=== PATIENT | female | born 1955 | race Caucasian/White ===

== ENCOUNTER 2020-02-16 09:15 | Outpatient (CLI) | payer BC, SELFPAY ==
--- NOTE | ~2020-02-16 | MM_ITS ---
EXAMINATION: MM screening christopher BI w ginny HISTORY: Screening mammogram TECHNIQUE: Craniocaudal and mediolateral oblique 3-D tomosynthesis images were obtained and synthetic 2-D images were generated. CAD analysis was submitted and interpreted. COMPARISON: No prior mammogram is available for comparison at this institution. BREAST PARENCHYMAL COMPOSITION: There are scattered areas of fibroglandular density. FINDINGS: There is no evidence of suspicious mass, calcification, or architectural distortion to sugg est malignancy in either breast. There has been no suspicious interval change. IMPRESSION: 1. No mammographic evidence of malignancy. 2. Recommend routine screening mammography in one year. BI-RADS Category 1: Negative Reviewed, dictated and finalized at location A.
== END 2020-02-16 09:16 | disposition home or self-care (01) ==
LOC: ANHIMG 09:17
PROVIDERS: PCP Family Medicine; Visit Provider Nurse Practitioner
DX: Z12.31 Encounter for screening mammogram for malignant neoplasm of breast (principal)
CPT/HCPCS: 77063; 77067

== ENCOUNTER 2020-03-31 07:53 | Outpatient (CLI) | payer BC, SELFPAY ==
--- NOTE | ~2020-03-31 | DEXA_ITS ---
Bone Density Report Name: Adam Wilson Age: 65 Sex: Female Ethnicity: White Date of : 1955 Indication: postmenopausal; height loss; Referring Provider: Margarita Richardson Study: Bone densitometry was performed. Exam Date: March 31, 2020 Accession number: [id number] Bone Density: Region BMD T-score Z-score Classification AP Spine (L1-L4) 1.058 0.1 1.7 Normal Femoral Neck (Left) 0.883 0.3 1.7 Normal Total Hip (Left) 1.010 0.6 1.7 Normal Total Hip Bilateral Avg 1.029 0.8 1.9 Normal Femoral Neck (Right) 0.921 0.6 2.1 Normal Total Hip (Right) 1.047 0.9 2.0 Normal World Health Organization criteria for BMD impression classify patients as: Normal (T-score at or above -1.0), Osteopenia (T-score between -1.0 and -2.5), or Osteoporosis (T-score at or below -2.5). 10-year Fracture Risk: FRAX not reported because: All T-scores for Spine Total, Hip Total, Femoral Neck at or above -1.0 Clinical Information Provided by Patient: Patient maximum height was 64 Menopause Age: 59 Drinks caffeinated beverages Onset of menses at age 16 Number of children 2 Impression: The patient has normal bone mass. Discussion: BONE DENSITY IS ABOVE THE MINIMUM DESIRABLE LEVEL AT ALL SKELETAL SITES TESTED. This patient?s bone mineral density is above the minimum desirable level (T-score -1.0 or better) at all sites measured. The patient should follow a healthful lifestyle (good nutrition with adequate calcium and vitamin D, and appropriate weight-bearing exercise). Follow-Up: Consider repeating this study in 5 years or sooner if there is some new clinical indication. Reported by: ASHLEY on 03/31/2020 8:15:00 AM. Reviewed, dictated and finalized at location AAngelo WEBSTER
== END 2020-03-31 07:54 | disposition home or self-care (01) ==
LOC: ANHIMG 07:54
PROVIDERS: PCP Family Medicine; Visit Provider Nurse Practitioner
DX: Z78.0 Asymptomatic menopausal state (principal)
CPT/HCPCS: 77080

== ENCOUNTER 2020-07-02 07:23 | Outpatient (CLI) | payer BC, SELFPAY | END 2020-07-02 07:24 | disposition home or self-care (01) | LOC: ANHBWCAUD 07:24 | PROVIDERS: PCP Family Medicine; Visit Provider Otolaryngology | DX: H93.13 Tinnitus, bilateral (principal); H93.8X9 Other specified disorders of ear, unspecified ear | CPT/HCPCS: 92557; 92567 ==

== ENCOUNTER 2021-02-21 07:25 | Outpatient (CLI) | payer BC, SELFPAY ==
--- NOTE | ~2021-02-21 | MM_ITS ---
EXAMINATION: MM screening christopher BI w ginny HISTORY: Screening mammogram TECHNIQUE: Craniocaudal and mediolateral oblique 3-D tomosynthesis images were obtained and synthetic 2-D images were generated. CAD analysis was submitted and interpreted. COMPARISON: 02/16/2020, 02/12/2019, 02/06/2018 bilateral digital screening mammogram examinations BREAST PARENCHYMAL COMPOSITION: There are scattered areas of fibroglandular density. FINDINGS: There is no evidence of suspicious mass, calcification, or architectural distortion to sugg est malignancy in either breast. There has been no suspicious interval change. IMPRESSION: 1. No mammographic evidence of malignancy. 2. Recommend routine screening mammography in one year. BI-RADS Category 1: Negative Reviewed, dictated and finalized at location A.
== END 2021-02-21 07:26 | disposition home or self-care (01) ==
PROVIDERS: PCP Family Medicine; Visit Provider Nurse Practitioner Family
DX: Z12.31 Encounter for screening mammogram for malignant neoplasm of breast (principal)
CPT/HCPCS: 77063; 77067

== ENCOUNTER 2021-11-19 16:17 | Emergency (ER) | payer BC, SELFPAY ==
[2021-11-19 16:22] VITALS: BP 160/73; PULSE 95; RESP 16; TEMP 37.4; O2SAT 98
--- NOTE | 2021-11-19 16:42 | ED.EAR ---
HPI - Ear Problem General Chief complaint: Ear Stated complaint: Bug flew in L ear - check Source: patient Mode of arrival: ambulatory Limitations: no limitations History of Present Illness HPI Narrative: Patient presents for evaluation after getting an insect stuck in her left ear. She indicates she was in her pool just prior to arrival when she felt an insect in her left ear. She and her son put some vegetable oil in her ear canal. The later placed hydrogen peroxide in the ear. She was unsure whether the insect came out so she came in for further evaluation. She does not feel like the insect is in her ear any longer. Denies any tinnitus, hearing loss, otalgia. No additional complaints or concerns. Related Data Allergies Allergy/AdvReac Type Severity Reaction Status Date / Time Penicillins Allergy Unknown Unknown Verified 09/05/21 14:57 Sulfa (Sulfonamide Allergy Unknown Swelling Verified 09/05/21 14:57 Antibiotics) Review of Systems Review of Systems: CONSTITUTIONAL: Denies fever, chills, or sweats. EYES: Denies visual changes, redness, or discharge. ENT: Reports sensation of insect in her ear earlier, now resolved. Denies rhinorrhea, congestion, sore throat, or otalgia. CARDIOVASCULAR: Denies chest pain, palpitations, or edema. RESPIRATORY: Denies cough or dyspnea. GASTROINTESTINAL: Denies abdominal pain, nausea, vomiting, or diarrhea. GENITOURINARY: Denies dysuria or hematuria. SKIN: Denies rash or itching. MUSCULOSKELETAL: Denies back pain, joint pain, or myalgia. NEUROLOGIC: Denies headache, numbness, dizziness, or weakness. PSYCHIATRIC: Denies anxiety or depression. [facility] Past Medical History Medical History (Updated 11/19/21 @ 16:45 by LESLY Ellison, BC) Allergies Depressive disorder, not elsewhere classified Former smoker 20 pack-year smoking hx, quit in 1995 Osteoarthritis of knee, unspecified Other and unspecified hyperlipidemia Palpitations Vitamin D deficiency Surgical History Surgical History No pertinent past surgical history Family History Family History Sibling Family history of migraine headaches Mother Family history of pancreatic cancer Family history of malignant neoplasm of breast in first degree relative Father Asthma Cancer Depression Grandparent Carcinoma of colon Social History Social History Social History: , 2 children. Only one son living now. Tj Wilson will make medical decision for her if needed. Years smoked: 20 Smoking status: Former smoker Smoking end date: 04/30/95 Alcohol intake: current Alcohol use details: occasionally Substance use: never Substance use type: does not use Exam Narrative: GENERAL: Well-appearing, well-nourished, and in no acute distress. HEAD: Normocephalic, atraumatic. EYES: PERRLA and EOMI. ENT: Nares clear, no rhinorrhea or epistaxis. Mucous membranes moist. Oropharynx without tonsillar hypertrophy exudate or other lesions. Bilateral TMs pearly hines nonbulging NECK: Supple. No adenopathy or masses. No carotid bruits or JVD CHEST: Clear to auscultation. No respiratory distress. No wheezes rales or rhonchi HEART: Regular rate and rhythm. No murmur heard. Normal peripheral pulses. ABDOMEN: Soft, nontender, nondistended, normal active bowel sounds. EXTREMITIES: Normal range of motion. No edema. SKIN: Warm, dry, no rash. NEURO: No focal deficits. Alert and oriented x3. PSYCH: Normal mood and affect. Course Course Emergency Course: This is a 66-year-old female with a reported an insect in her ear prior to arrival. She irrigated it prior to coming in today. On my exam today, there is no evidence of insect or other foreign body in her ear at present time. Tympanic membrane is intact and there is no evide
== END 2021-11-19 16:45 | disposition home or self-care (01) ==
PROVIDERS: Emergency Provider Nurse Practitioner; PCP Family Medicine
DX: T16.2XXA Foreign body in left ear, initial encounter (principal); X58.XXXA Exposure to other specified factors, initial encounter; Z87.891 Personal history of nicotine dependence; M17.10 Unilateral primary osteoarthritis, unspecified knee; F32.A Depression, unspecified
CPT/HCPCS: 99211; G0463

== ENCOUNTER 2022-04-05 11:59 | Outpatient (CLI) | payer MEDICARE, SELFPAY ==
--- NOTE | ~2022-04-05 | MM_ITS ---
EXAMINATION: MM screening christopher BI w ginny HISTORY: Screening mammogram, family history of breast cancer in her mother. TECHNIQUE: Craniocaudal and mediolateral oblique 3-D tomosynthesis images were obtained and synthetic 2-D images were generated. CAD analysis was submitted and interpreted. COMPARISON: 02/21/2021, 02/16/2020, 02/12/2019 BREAST PARENCHYMAL COMPOSITION: There are scattered areas of fibroglandular density. FINDINGS: No suspicious mass, calcification, or architectural distortion are identified in either torin ast to suggest malignancy. There has been no suspicious interval change. IMPRESSION: 1. No mammographic evidence of malignancy. 2. Recommend routine screening mammography in one year. BI-RADS Category 2: Benign finding(s). Reviewed, dictated and finalized at location A. ING MACHINE SETUP OPERATOR
== END 2022-04-05 12:00 | disposition home or self-care (01) ==
PROVIDERS: PCP Family Medicine; Visit Provider Family Medicine
DX: Z12.31 Encounter for screening mammogram for malignant neoplasm of breast (principal)
CPT/HCPCS: 77063; 77067

== ENCOUNTER → 2022-05-09 09:24 | Outpatient (CLI) | payer MEDICARE, SELFPAY ==
--- NOTE | ~2022-05-09 | DEXA_ITS ---
Bone Density Report Name: NATHANAEL TAMEZ Age: 67 Sex: Female Ethnicity: White Date of : 1955 Indication: postmenopausal; screening for osteoporosis; height loss; Referring Provider: Margarita Richardson Study: Bone densitometry was performed. Exam Date: May 09, 2022 Accession number: [id number] Bone Density: Region BMD T-score Z-score Classification AP Spine (L1-L4) 1.114 0.6 2.4 Normal Femoral Neck (Left) 0.914 0.6 2.1 Normal Total Hip (Left) 1.011 0.6 1.8 Normal Femoral Neck (Right) 0.894 0.4 1.9 Normal Total Hip (Right) 1.038 0.8 2.0 Normal Total Hip Mean 1.025 0.7 1.9 Normal World Health Organization criteria for BMD impression classify patients as: Normal (T-score at or above -1.0), Osteopenia (T-score between -1.0 and -2.5), or Osteoporosis (T-score at or below -2.5). 10-year Fracture Risk: FRAX not reported because: All T-scores for Spine Total, Hip Total, Femoral Neck at or above -1.0 Clinical Information Provided by Patient: Has used the following medications: Vitamin D, Calcium, MTV Patient maximum height was 64 Menopause Age: 44 No regular weight bearing exercise Drinks caffeinated beverages Onset of menses at age 16 Number of children 2 Impression: The patient has normal bone mass. Discussion: BONE DENSITY IS ABOVE THE MINIMUM DESIRABLE LEVEL AT ALL SKELETAL SITES TESTED. This patient?s bone mineral density is above the minimum desirable level (T-score -1.0 or better) at all sites measured. The patient should follow a healthful lifestyle (good nutrition with adequate calcium and vitamin D, and appropriate weight-bearing exercise). Follow-Up: Consider repeating this study in 5 years or sooner if there is some new clinical indication. Reported by: ASHLEY on 05/09/2022 9:46:00 AM. Reviewed, dictated and finalized at location AAngelo WEBSTER
== END ==
PROVIDERS: PCP Family Medicine; Visit Provider Nurse Practitioner
DX: Z78.0 Asymptomatic menopausal state (principal)
CPT/HCPCS: 77080

== ENCOUNTER 2022-05-16 10:03 | Outpatient (CLI) | payer MEDICARE, SELFPAY ==
--- NOTE | ~2022-05-16 | CT_ITS ---
EXAMINATION:CT lung screening DATE: 05/16/2022 10:27 INDICATION: Tobacco use. Smoker who quit 2 years ago with 20 pack year history. TECHNIQUE: Computed tomography (CT) of the chest was performed without intravenous contrast. Automate d exposure control and iterative reconstruction technique were employed. The dose-length product (DLP ) was 80.63 mGy-cm. COMPARISON: None. FINDINGS: There is mild scarring at the lung apices. There is a 5 mm nodule at minor fissure. There i s a 3 mm nodule at left major fissure. There is mild atelectasis bilaterally. No pleural effusion. Th e heart size is normal. There are coronary artery calcifications. No pericardial effusion. There are cysts in the liver measuring up to 17 mm. There is severe cervical and thoracic spondylosis. IMPRESSION: 1. Lung-RADS category 2: Benign appearance or behavior. Continue annual screening with noncontrast lo w-dose chest CT in 12 months. Reviewed, dictated and finalized at location A. [employer] IMPRESSION: 1. Lung-RADS category 2: Benign appearance or behavior. Continue annual screeni ng with noncontrast low-dose chest CT in 12 months.
== END 2022-05-16 10:04 | disposition home or self-care (01) ==
PROVIDERS: PCP Family Medicine; Visit Provider Nurse Practitioner
DX: Z12.2 Encounter for screening for malignant neoplasm of respiratory organs (principal); Z87.891 Personal history of nicotine dependence
CPT/HCPCS: 71271

== ENCOUNTER 2022-10-04 15:29 | Outpatient (CLI) | payer MEDICARE, SELFPAY ==
[2022-10-04 21:27] LABS: Alanine Aminotransferase 38 U/L (6-35); Albumin Level 4.4 g/dL (3.5-5.1); Alkaline Phosphatase 58 U/L (38-126); Anion Gap 7 mmol/L (8-16); Aspartate Amino Transferase 41 U/L (14-36); Bilirubin,Total 0.7 mg/dL (0.2-1.3); Blood Urea Nitrogen 17 mg/dL (7-17); Calcium 9.4 mg/dL (8.4-10.2); Carbon Dioxide 31 mmol/L (22-30); Chloride 102 mmol/L (98-107); Estimated Glomerular Filt Rate > 60; Glucose 92 mg/dL (65-110); Potassium 4.2 mmol/L (3.4-5.0); Sodium 140 mmol/L (137-145)
== END 2022-10-04 15:30 | disposition home or self-care (01) ==
LOC: ANHGOSHLAB 15:30
PROVIDERS: PCP Family Medicine; Visit Provider Family Medicine
DX: E78.5 Hyperlipidemia, unspecified (principal); I10 Essential (primary) hypertension
CPT/HCPCS: 36415; 80053

== ENCOUNTER 2022-11-02 09:47 | Outpatient (CLI) | payer MEDICARE, SELFPAY ==
--- NOTE | ~2022-11-02 | NM_ITS ---
EXAMINATION: NM josefina stress w perfusion DATE: 11/02/2022 11:29 INDICATION: Left bundle branch block TECHNIQUE: Rest images were obtained following intravenous administration of 9.2 mCi Tc99m tetrofosmi n (Myoview). The patient was infused intravenously with Lexiscan (Regadenoson). Then, 30.3 mCi Tc99m tetrofosmin (Myoview) was administered intravenously, and stress images were obtained. Data was recon structed into short axis and horizontal and vertical long axis SPECT images. Gated SPECT images were also obtained. COMPARISON: None. FINDINGS: There is no definite reversible or fixed perfusion abnormality to suggest ischemia or infar ction. There is normal left ventricular chamber size and ejection fraction. There is paradoxical mot ion at the mid to apical septum. Left ventricular ejection fraction measures 67%. IMPRESSION: 1. Normal myocardial perfusion at rest and during stress. 2. Paradoxical motion along the mid to apical septum consistent with reported left bundle branch bloc k but with normal ventricular ejection fraction measuring 67%. Reviewed, dictated and finalized at location L. IMPRESSION: 1. Normal myocardial perfusion at rest and during stress. 2. Paradoxical motion along the mid to apical septum consistent with reported l eft bundle branch block but with normal ventricular ejection fraction measuring 67%.
--- NOTE | 2022-11-02 10:26 | EST_ITS ---
Patient Info Name: Adam Wilson Age: 67 years : 1955 Gender: Female Ht: 63 in Wt: 174 lbs BSA: 1.90 m2 HR: 58 bpm BP: 183 / 93 mmHg Heart Rhythm: Sinus Rhythm Exam Date: 11/02/2022 10:44 AM Exam Location: [facility] Stress Patient Status: Outpatient Admit Date: 11/02/2022 Staff Ordering Physician: Renato Sebastian MD Attending Provider: Renato Sebastian MD Exercise Technologist: Leilani Mejia CT Exercise Physician: Pilo Devine DO Exam Type: CA stress josefina w NM Study Info Indications I44.7 - Left bundle-branch block, unspecified A regadenoson stress test was performed. Summary 1. 1. Inconclusive lexiscan stress test for ischemic ST changes by ECG criteria due to baseline LBBB. 2. 2. Baseline hypertension. 3. 3. Nuclear scan to follow and will be reported separately. Please correlate with it. 4. 4. Patient informed of the above results. Protocol: Lexiscan Stress ECG Details Stage: REST Duration (min): 1 min : 54 sec HR (bpm): 60 SBP (mmHg): 187 DBP (mmHg): 102 Stage: REST Duration (min): 4 min : 31 sec HR (bpm): 59 SBP (mmHg): 183 DBP (mmHg): 98 Stage: REST Duration (min): 7 min : 35 sec HR (bpm): 62 SBP (mmHg): 183 DBP (mmHg): 98 Stage: STAGE 1 Duration (min): 1 min : 0 sec HR (bpm): 93 SBP (mmHg): 183 DBP (mmHg): 98 Stage: RECOVERY Duration (min): 1 min : 0 sec HR (bpm): 90 SBP (mmHg): 206 DBP (mmHg): 106 Stage: RECOVERY Duration (min): 2 min : 0 sec HR (bpm): 85 SBP (mmHg): 206 DBP (mmHg): 106 Stage: RECOVERY Duration (min): 3 min : 0 sec HR (bpm): 77 SBP (mmHg): 171 DBP (mmHg): 93 Stage: RECOVERY Duration (min): 4 min : 0 sec HR (bpm): 74 SBP (mmHg): 171 DBP (mmHg): 93 Stage: RECOVERY Duration (min): 4 min : 9 sec HR (bpm): 74 SBP (mmHg): 171 DBP (mmHg): 93 Rest HR: 62 bpm Peak HR: 93 bpm Rest Sys BP: 183 mmHg Peak Sys BP: 206 mmHg Max Pred HR: 155 bpm % Max Pred HR: 60 % Target HR: 132 bpm Max RPP: 19,158 bpm*mmHg Termination Reason: Completed protocol Cardiac Symptoms: Shortness of breath Total Time: 1 min : 0 sec Rest Carver BP: 98 mmHg Peak Carver BP: 106 mmHg Total Dose: 0.4 mg Resting ECG Sinus rhythm, LBBB. Stress ECG No ST changes. Arrhythmias None. Report Signatures
== END 2022-11-02 09:48 | disposition home or self-care (01) ==
PROVIDERS: PCP Family Medicine; Visit Provider Family Medicine
DX: I44.7 Left bundle-branch block, unspecified (principal)
CPT/HCPCS: 78452; 93017; A9502; J2785

== ENCOUNTER → 2023-05-01 08:41 | Outpatient (CLI) | payer MEDICARE, SELFPAY ==
--- NOTE | ~2023-05-01 | MMUS_ITS ---
EXAMINATION: MM diagnostic christopher BI w ginny, US breast LT limited HISTORY: Palpable lump in the upper outer quadrant of the left breast TECHNIQUE: Craniocaudal, mediolateral, and mediolateral oblique 3-D tomosynthesis images of the aroldo ts were performed and synthetic 2-D images were generated. CAD analysis was submitted and interpreted . High resolution limited left breast ultrasound was performed. COMPARISON: 04/05/2022, 02/21/2021, 02/16/2020 BREAST PARENCHYMAL COMPOSITION: There are scattered areas of fibroglandular density. FINDINGS: MAMMOGRAPHIC FINDINGS: No suspicious mass, calcification, or architectural distortion are identified in either breast to sug gest malignancy. There has been no suspicious interval change. No mammographic correlate is identifi ed for the reported palpable abnormality of the left breast. ULTRASOUND: There is no evidence of focal abnormal solid or cystic mass in the vicinity of the reported palpable abnormality of the left breast. IMPRESSION: 1. No specific mammographic or sonographic correlate is identified for the reported palpable abnormal ity of concern in the left breast. Further evaluation at this time should be based on clinical assess ment. Continued follow-up physical examination is recommended. 2. Recommend routine screening mammography in one year. BI-RADS Category 1: Negative Reviewed, dictated and finalized at location A. CAGER IMPRESSION: 1. No specific mammographic or sonographic correlate is identified for the repo rted palpable abnormality of concern in the left breast. Further evaluation at this time should be based on clinical assessment. Continued follow-up physical examination is recommended. 2. Recommend routine screening mammography in one year. BI-RADS Category 1: Negative
== END ==
PROVIDERS: PCP Nurse Practitioner Family; Visit Provider Nurse Practitioner Family
DX: N63.0 Unspecified lump in unspecified breast (principal); R92.8 Other abnormal and inconclusive findings on diagnostic imaging of breast
CPT/HCPCS: 76642; 77062; 77066; G0279

== ENCOUNTER 2024-06-26 14:03 | Outpatient (CLI) | payer MEDICARE, SELFPAY | END 2024-06-26 14:04 | disposition home or self-care (01) | PROVIDERS: PCP Family Medicine; Visit Provider Family Medicine | DX: Z12.31 Encounter for screening mammogram for malignant neoplasm of breast (principal); R92.8 Other abnormal and inconclusive findings on diagnostic imaging of breast | CPT/HCPCS: 77063; 77067 ==

== ENCOUNTER 2024-07-03 13:22 | Outpatient (CLI) | payer MEDICARE, SELFPAY ==
--- NOTE | ~2024-07-03 | MM_ITS ---
EXAMINATION: MM diagnostic christopher RT w ginny HISTORY: Right breast asymmetry TECHNIQUE: Additional 3-D tomosynthesis images of the right breast were performed and synthetic 2-D i mages were generated. CAD analysis was submitted and interpreted. COMPARISON: 06/26/2024, 05/01/2023, 04/05/2022, 02/21/2021 BREAST PARENCHYMAL COMPOSITION:Not Dense. There are scattered areas of fibroglandular density. FINDINGS: Right breast asymmetry effaces with spot compression. No persistent mass lesion or distorti on. No suspicious microcalcification. IMPRESSION: No mammographic evidence for malignancy. BI-RADS Category 1: Negative Reviewed, dictated and finalized at location . ITY PROCESS AUDITOR
--- OUTSIDE RECORDS SUMMARY | 2024-07-03 14:41 | XMS_ITS | Encounter Summary ---
Author Organization [facility] Address [address] [place] [address] Care Team Providers Care Internal Affairs Investigator Name Role Phone Jacki Martinez Primary Care Provider Unavaila ble Encounter Details Date Type Department Care Team (Late st Contact Info) Description 09/20/[address] [facility] Care DermPath Lab [address] [place] [address] Flavio Waite Jr., MD [address] [place] [address] Social History Tobacco Use Types Packs/Day Years Used Date Smoking Tobacco: Never Smokeless Tobacco: Never Alcohol Use Standard Drinks/Week Comments Yes 0 (1 standard drink = 0.6 oz pur e alcohol) socially PHQ-2 Answer Date Recorded PHQ2 TOTAL SCORE 0 08/27/2020 Sex and Gender Information Value Date Recorded Sex Assigned at Not on file Gender Identity Female 08/27/2020 10:31 AM CDT Sexual Orientation Not on file COVID-19 Exposure Response Date Recorded In the last month, have you been in contact with someone who was confirmed or suspected to have Coronavirus / COVID-19? No / Unsure 08/27/2020 11:15 AM CDT documented as of this encounter Plan of Treatment Not on file documented as of this encounter Procedures Procedure Name Priority Date/Time Associated Diagnosis Comments DERMATOPATHOLOGY Routine 09/17/2020 12:0 0 AM CDT documented in this encounter Results * DERMATOPATHOLOGY (09/17/2020 12:00 AM CDT) Case Report Dermatopathology Report Case: [id number] Authorizing Provider: Flavio Waite Jr., MD Collected: 09/17/2020 12:00 AM Ordering Location: [facility] DermPath Lab Received: 09/20/2020 02:43 PM Pathologist: Naomi Kaufman MD Specimens: A) - Skin, left proximal pretibial region B) - Skin, left distal pretibial region 4:17 PM CDT DERMATOPATHOLOGY LABORATORY Final Diagnosis Specimen A. SKIN, left proximal pretibial region: ACTINIC KERATOSIS (L57.0) STASIS DERMATITIS (L30.8) Specimen B. SKIN, left distal pretibial region: ACTINIC KERATOSIS (L57.0) STASIS DERMATITIS (L30.8) 4:17 PM T DERMATOPATHOLOGY LABORATORY Clinical History A-B: Basal cell carcinoma vs irritated seborrheic keratosis vs Squamous cell carcinoma vs actinic keratosis. 4:17 PM CDT DERMATOPATHOLOGY LABORATORY Gross Description Specimen A: Received is one formalin filled container labeled with the patient's name and designated left proximal pretibial region. The specimen consists of a shave biopsy measuring [id number]. Jar 0. Specimen B: Received is one formalin filled container labeled with the patient's name and designated left distal pretibial region. The specimen consists of a shave biopsy measuring [id number]. Jar 0. 4:17 PM CDT DERMATOPATHOLOGY LABORATORY Microscopic Description Specimen A. SKIN, left proximal pretibial region: There is focal parakeratosis. The lower half of the epidermis shows disorderly maturation of keratinocytes with nuclear pleomorphism. There is focal spongiosis. The dermis shows a sparse, perivascular lymphocytic infiltrate surrounding dilated, thick-walled vessels, which are increased in number. Specimen B. SKIN, left distal pretibial region: There is focal parakeratosis. The lower half of the epidermis shows disorderly maturation of keratinocytes with nuclear pleomorphism. There is focal spongiosis. The dermis shows a sparse, perivascular lymphocytic infiltrate surrounding dilated, thick-walled vessels, which are increased in number. 1 4:17 PM CDT DERMATOPATHOLOGY LABORATORY Disclaimer An external and internal positive and negative controls are appropriate for the histochemical, immunohistochemical and immunofluorescence stain(s) in this case (if any), except where stated explicitly. The performance characteristics of the stain(s) cited in this report were developed and its performance characteristic determined by the Dermatopathology Laboratory at [facility], directed by Dr. Gus Kaufman. These tests need not be, and therefore are not, approved by the [place] Food and Drug Administration. The tests are used for clinical purposes. Billing Codes Specimen Charges Stain Charges [id number] 1 1 1 4:17 PM CDT DERMATOPATHOLOGY LABORATORY Embedded Images 4:17 PM CDT DERMATOPATHOLOGY LABORATORY Pathology/Cytology TISSUE SPECIMEN FROM SKIN / Unknown 09/17/2020 09/20/2020 2:43 PM CDT Miscellaneous samples (specimen) TISSUE SPECIMEN FROM SKIN / Unknown 09/17/2020 09/20/2020 2:43 PM CDT Flavio Waite Jr., MD LAB - PATHOLOGY /CYTOLOGY ORDERABLES DERMATOPATHOLOGY LABORATORY [facility] - Department of Dermatology [facility] [address] [place] [address], [address] [place] [address], [facility] [phone] documented in this encounter Visit Diagnoses Not on filedocumented in this encounter Care Teams Internal Affairs Investigator Relationship Specialty Start Date End Date Jacki Martinez Update Information PCP - General 09/20/20 documented as of this encounter
--- OUTSIDE RECORDS SUMMARY | 2024-07-03 14:41 | XMS_ITS | Referral Summary ---
Author Organization [facility] Address [address] [place] [address] Care Team Providers Care Anesthesia Technician Name Role Phone Jacki Martinez Primary Care Provider Unavaila ble Source Comments [facility],non-owned Affiliates and Associated Physician Practices is amultiple site organization consisting of ambulatory clinics and hospital sitesin [place], [place], [place] and [place]. This disclosure is being madepursuant to the Care Everywhere program and may not contain all information available regarding this patient. Last updated 18.[facility] Management Services Allergies Active Allergy Reactions Criticality Noted Date Comments Penicillins 02/06/2017 Sulfa Drugs 02/06/2017 Medications * Be aware that medications may not be up to date on this document. Alwaysverify current medications with the patient. Medication Sig Dispensed Refills Start Date End Date Status BuPROPion HCl (WELLBUTRIN XL PO) Active Fexofenadine HCl (YVETTE PO) Active Fluticasone Propionate (FLONASE NA) Active METOPROLOL SUCCINATE PO Active montelukast (SINGULAIR) 10 MG tablet 0 03/25/2018 Active azelastine (ASTELIN) 0.1 % nasal spray [place] 1 (one) spray into each nostril 2 times daily 1 Inhaler 1 08/27/2020 Active Active Problems No known active problems Immunizations Name Administration Dates Next Due HEP A VACCINE, ADULT 04/26/2001,10/23/2000 INFLUENZA VACCINE, QUADR. (A FLURIA, FLUZONE QUADRIVALENT; 6MO+) (IIV4) 03/03/2013,02/19/2012 INFLUENZA VACCINE, QUADR. (F LUZONE; FLULAVAL; FLUARIX; AFLURIA QUADRIVALENT; 6MO+), 0.5 ML (IIV4) 01/12/2020,02/12/2019 TDAP (7yrs+) 08/22/2011 Social History Tobacco Use Types Packs/Day Years [...] AM CDT Sexual Orientation Not on file Last Filed Vital Signs Vital Sign Reading Time Taken Comments Blood Pressure 152/90 08/27/2020 11:25 AM CDT Pulse 77 08/27/2020 11:25 AM CDT Temperature 36.9 C (98.5 F) 08/27/2020 11:25 AM CDT Respiratory Rate 16 08/27/2020 11:25 AM CDT Oxygen Saturation 98% 08/27/2020 11:25 AM CDT Inhaled Oxygen Concentration - - Weight 72.6 kg (160 lb) 08/27/2020 11:25 AM CDT Height 161.3 cm (5' 3.5 ) 08/27/2020 11:25 AM CD T Body Mass Index 27.9 08/27/2020 11:25 AM CDT Plan of Treatment Not on file Care Teams Anesthesia Technician Relationship Specialty Start Date End Date Jacki Martinez Update Information PCP - General 09/20/20
--- OUTSIDE RECORDS SUMMARY | 2024-07-03 14:41 | XMS_ITS | Continuity of Care Document ---
Author Organization [facility] Address [address] [place] [address] Phone Care Team Providers Care Security Associate Name Role Phone Anurag Chairez MD Unavailable Unavailable Allergies, Adverse Reactions, Alerts Substance Reaction Status Criticality Penicillins Active No Information Sulfa (Sulfonamide Antibiotics) Active No Information Procedures Procedure Date MRI lwr extrm joint, w/o contrast Office/outpatient visit,[facility] [place] X-ray exam knee, 1 or 2 views 2 X-ray exam both knees, standing 012 Advance Directives Directive Yes / No Effective Date File Name No Information Encounters Encounter Description Practice Location Reason(s) For Visit Diagnoses Date Provider Providers Copied on Encounter [facility], [address] [place] [address], [id number], [place] tel:[phone] [facility] No Information Savannah Osborn. [address] [place] [address], [place], [place], [id number] , [place]. tel: [phone] [facility], [address] [place] [address], [id number], [place] tel:[phone] [facility] LOC PRIM OSTEOART-L/LE GCHONDROMALAC IAJOINT EFFUSION-L/LE G 2 [facility]. [address], [place], [place], [id number] , [place]. tel: [phone] Referring Provider: Anurag Nunes, [facility], [place], [address] . tel:[phone] Office/outpat ient visit,[facility], [address] [place], [place] [address], [place], [place], [id number], [place] tel:[phone] [facility] JOINT PAIN-L/LEGTEA R MED MENISC KNEE-CURCHOND ROMALACIA 2 Contreras Osborn. [address], [address], [place], [place], [id number] , [place]. tel: [phone] Family History Family Member Type Diagnosis Age At Onset No Information Payers Payer name Insurance type Covered alliance party ID Monico pitts(s) [facility] [id number] Social History Type Description Quantity Date Captured Comments Sex Female Smoking Status No Information Chief Complaint And Reason For Visit No Information Reason For Referral Reason For Referral No Information History Of Present Illness Encounter Date Complaint History Of Prese nt Illness No Information Functional Status Date Functional Assessmen t No Information Instructions Date Instruction Additional Infor mation No Information Assessments Type Assessment Date No Information Patient Care Teams Name Effective Dates (start - stop) Status Members No Information
--- OUTSIDE RECORDS SUMMARY | 2024-07-03 14:41 | XMS_ITS | Patient Health Summary ---
Author Organization [facility] Address [address] [place] [address] Care Team Providers Care Attendance Officer Name Role Phone Jacki Martinez Primary Care Provider Unavaila ble Note from [facility],non-owned Affiliates and Associated Physician Practices is amultiple site organization consisting of ambulatory clinics and hospital sitesin [place], [place], [place] and [place]. This disclosure is being madepursuant to the Care Everywhere program and may not contain all information available regarding this patient. Last updated 18.[facility] Allergies * Penicillins * Sulfa Drugs Medications * Be aware that medications may not be up to date on this document. Alwaysverify current medications with the patient. * BuPROPion HCl (WELLBUTRIN XL PO) * Fexofenadine HCl (YVETTE PO) * Fluticasone Propionate (FLONASE NA) * METOPROLOL SUCCINATE PO * montelukast (SINGULAIR) 10 MG tablet(Started 03/25/2018) * azelastine (ASTELIN) 0.1 % nasal spray(Started 08/27/2020) [place] 1 (one) spray into each nostril 2 times daily 1 refill by 08/27/2021 Active Problems No known active problems Immunizations * HEP A VACCINE, ADULT(Given 04/26/2001, 10/23/2000) * INFLUENZA VACCINE, QUADR. (AFLURIA, FLUZONE QUADRIVALENT; 6MO+) (IIV4)(Given 03/03/2013, 02/19/2012) * INFLUENZA VACCINE, QUADR. (FLUZONE; FLULAVAL; FLUARIX; AFLURIA QUADRIVALENT; 6MO+), 0.5 ML (IIV4)(Given 01/12/2020, 02/12/2019) * TDAP (7yrs+)(Given 08/22/2011) Social History Tobacco Use Types Packs/Day Years [...] Mass Index 27.9 08/27/2020 11:25 AM CDT Procedures * DERMATOPATHOLOGY(Performed 09/17/2020) * CULTURE URINE(Performed 04/10/2018) Performed for Acute cystitis with hematuria * CULTURE URINE(Performed 03/04/2018) Performed for Acute cystitis with hematuria * URINALYSIS AUTO - POINT OF CARE (AMB) STL(Performed 03/04/2018) Performed for Acute cystitis with hematuria * STREP A SCREEN - POINT OF CARE (AMB) STL(Performed 06/05/2017) Performed for Acute nasopharyngitis Results * DERMATOPATHOLOGY (09/17/2020 12:00 AM CDT) Case Report Dermatopathology Report Case: [id number] Authorizing Provider: Flavio Waite Jr., MD Collected: 09/17/2020 12:00 AM Ordering Location: [facility] DermPath Lab Received: 09/20/2020 02:43 PM Pathologist: Naomi Kaufman MD Specimens: A) - Skin, left proximal pretibial region B) - Skin, left distal pretibial region 4:17 PM [facility] DERMATOPATHOLOGY LABORATORY Final Diagnosis Specimen A. SKIN, left proximal pretibial region: ACTINIC KERATOSIS (L57.0) STASIS DERMATITIS (L30.8) Specimen B. SKIN, left distal pretibial region: ACTINIC KERATOSIS (L57.0) STASIS DERMATITIS (L30.8) 4:17 PM [facility] DERMATOPATHOLOGY LABORATORY Clinical History A-B: Basal cell carcinoma vs irritated seborrheic keratosis vs Squamous cell carcinoma vs actinic keratosis. 4:17 PM T DERMATOPATHOLOGY LABORATORY Gross Description Specimen A: Received is one formalin filled container labeled with the patient's name and designated left proximal pretibial region. The specimen consists of a shave biopsy measuring [id number]. Jar 0. Specimen B: Received is one formalin filled container labeled with the patient's name and designated left distal pretibial region. The specimen consists of a shave biopsy measuring 8o4n5pc. Jar 0. 4:17 PM [facility] DERMATOPATHOLOGY LABORATORY Microscopic Description Specimen A. SKIN, [...] thick-walled vessels, which are increased in number. 4:17 PM T DERMATOPATHOLOGY LABORATORY Disclaimer An external and internal positive and negative controls are appropriate for the histochemical, immunohistochemical and immunofluorescence stain(s) in this case (if any), except where stated explicitly. The performance characteristics of the stain(s) cited in this report were developed and its performance characteristic determined by the Dermatopathology Laboratory at [facility], directed by Dr. Gus Kaufman. These tests need not be, and therefore are not, approved by the [place] Food and Drug Administration. The tests are used for clinical purposes. Billing Codes Specimen Charges Stain Charges 47395 38904 1 1 1 4:17 PM CDT DERMATOPATHOLOGY LABORATORY Embedded Images 1 4:17 PM CDT DERMATOPATHOLOGY LABORATORY Pathology/Cytology TISSUE SPECIMEN FROM SKIN / Unknown 09/17/2020 09/20/2020 2:43 PM CDT Miscellaneous samples (specimen) TISSUE SPECIMEN FROM SKIN / Unknown 09/17/2020 09/20/2020 2:43 PM CDT Flavio Waite Jr., MD LAB - PATHOLOGY /CYTOLOGY ORDERABLES DERMATOPATHOLOGY LABORATORY [facility] Department of Dermatology [address], [address] [phone] * CULTURE URINE (04/10/2018 10:26 AM ELECTRONICS PARTS SALES REPRESENTATIVE) Only the most recent of2 resultswithin the time period is included. Urine Culture Routine Final report [facility] ACCOUNT BILL Result 1 No growth [facility] ACCOUNT BILL Urine URINE SPECIMEN OBTAINED BY CLEAN CATCH PROCEDURE / Unknown 04/10/2018 10:26 AM ELECTRONICS PARTS SALES REPRESENTATIVE 04/10/2018 Narrative Resulting Agency Comment [facility] [address] [id number] Suzette Elizabeth PARTS CONTROL CLERK-REDEVELOPMENT MANAGER LAB - MICROBIOLO GY ORDERABLES [facility] ACCOUNT BILL [address] [place] [address] * URINALYSIS AUTO - POINT OF CARE (AMB) STL (03/04/2018) Clarity UA POCT cloudy Color UA POCT straw Leukocyte UA 2+ Negative Nitrite UA POCT negative Negative Urobilinogen UA 0.2 0.1 - 1.0 Protein UA POCT 1+ Negative pH UA 5.0 5.0 - 8.0 pH units Blood UA 3+ Negative Specific [place] UA POCT 1.010 1.002 - 1.030 Ketone UA negative Negative Bilirubin UA POCT negative Negative Glucose UA negative Negative Expiration Date 03/23/18 Lot # [id number] Verified Yes Yes Urine URINE / Unknown 03/04/2018 Suzette Elizabeth PARTS CONTROL CLERK-REDEVELOPMENT MANAGER LAB - POINT OF C ARE ORDERABLES * STREP A SCREEN - POINT OF CARE (AMB) STL (06/05/2017 12:58 PM ELECTRONICS PARTS SALES REPRESENTATIVE) Strep A Rapid POCT Negative Negative Strep A Internal Control Present Lot # [id number] Expiration Date [id number] Throat ENTIRE THROAT (SURFACE REGION OF NECK) / Unknown 06/05/2017 12:58 PM ELECTRONICS PARTS SALES REPRESENTATIVE Ji Pack PARTS CONTROL CLERK-REDEVELOPMENT MANAGER LAB - POINT OF CARE ORDERABLES Care Teams Attendance Officer Relationship Specialty Start Date End Date Jacki Martinez Update Information PCP - General 09/20/20
--- OUTSIDE RECORDS SUMMARY | 2024-07-03 14:41 | XMS_ITS | Clinical Summary ---
Author Organization [facility] Mod[facility] Address [address] [place] [address] Care Team Providers Care Bag Grader Name Role Phone Jacki Martinez Primary Care Provider Unavaila ble Source Comments [facility],non-owned Affiliates and Associated Physician Practices is amultiple site organization consisting of ambulatory clinics and hospital sitesin [place], [place], [place] and [place]. This disclosure is being madepursuant to the Care Everywhere program and may not contain all information available regarding this patient. Last updated 18.[facility] Mod[facility] Allergies Active Allergy Reactions Criticality Noted Date [...] Active azelastine (ASTELIN) 0.1 % nasal spray [place] 1 (one) spray into each nostril 2 times daily 1 Inhaler 1 08/27/2020 Active Active Problems No known active problems Immunizations Name Administration Dates Next Due HEP A VACCINE, ADULT 04/26/2001,10/23/2000 INFLUENZA VACCINE, QUADR. (A FLURIA, FLUZONE QUADRIVALENT; 6MO+) (IIV4) 03/03/2013,02/19/2012 INFLUENZA VACCINE, QUADR. (F LUZONE; FLULAVAL; FLUARIX; AFLURIA QUADRIVALENT; 6MO+), 0.5 ML (IIV4) 01/12/2020,02/12/2019 TDAP (7yrs+) 08/22/2011 Family History Medical History Relation Name Comments Cancer - Breast Mother Relation Name Status Comments Father Alive Mother Alive Social History Tobacco Use Types Packs/Day Years [...] 08/27/2020 11:25 AM CDT Plan of Treatment Health Maintenance Due Date Last Done Comments BONE DENSITY TESTING 1957 COLOGUARD (AGES 45-75) - COLON CA SCREENING 1957 COLON MONITORING 1957 COLONOSCOPY - COLON CA SCREENING 1957 CT COLONOGRAPHY - COLON CA SCREENING 1957 Colorectal Cancer Screening 1957 FIT - COLON CA SCREENING 1957 FLEX SIG - COLON CA SCREENING 1957 LIPID TESTING 1957 MAMMOGRAM 1957 HEPATITIS C SCREENING 01/14/1975 PNEUMOCOCCAL VACCINE 50+ (1 of 1 - PCV) 2007 ZOSTER VACCINE (1 of 2) 2007 SCREENING FOR DIABETES 08/27/2020 DTAP/TDAP/TD VACCINES (2 - Td or Tdap) 08/21/2021 08/22/2011 COVID-19 VACCINE ( - 2023- season) 2023 INFLUENZA VACCINE (#1) 2023 0, 02/12/2019, 03/03/2013, Additional history exists DEPRESSION SCREENING 04/30/2024 Respiratory Syncytial Virus (RSV) Vaccine Pt: or over 60 yrs (1 - 1-dose 75+ series) 01/19/2032 HEPATITIS B VACCINE Aged Out No longe r eligible based on patient's age to complete this topic HIB VACCINE Aged Out No longer eligi ble based on patient's age to complete this topic HPV VACCINE Aged Out No longer eligi ble based on patient's age to complete this topic MENINGOCOCCAL (Group B) VACCINE Aged Out No longer eligible based on patient's age to complete this topic MENINGOCOCCAL VACCINE Aged Out No toni maurisio eligible based on patient's age to complete this topic Care Teams Bag Grader Relationship Specialty Start Date End Date Jacki Martinez Update Information PCP - General 09/20/20
== END 2024-07-03 13:23 | disposition home or self-care (01) ==
LOC: ANHIMG 13:24
PROVIDERS: PCP Family Medicine; Visit Provider Family Medicine
DX: R92.8 Other abnormal and inconclusive findings on diagnostic imaging of breast (principal)
CPT/HCPCS: 77061; 77065; G0279

== ENCOUNTER 2024-10-02 06:56 | Outpatient (CLI) | payer MEDICARE, SELFPAY ==
--- NOTE | ~2024-10-02 | CT_ITS ---
EXAMINATION: CT lung screening DATE: 10/02/2024 07:19 INDICATION: Personal history of nicotine dependence. TECHNIQUE: Computed tomography (CT) of the chest was performed without intravenous contrast. The dose -length product was 98.68 mGy-cm. Automated exposure control and iterative reconstruction technique w ere employed. COMPARISON: CT dated 05/16/2022 FINDINGS: No significant change to low dense lesions in the liver, most likely benign cysts. Otherwis e, the upper abdomen is unremarkable. No significant pleural or pericardial effusion. Heart size norm al. Stable fissural nodules measuring 5 mm on the right and 3 mm on the left. No new pulmonary nodule s or masses. Moderate thoracic spondylosis. IMPRESSION: 1. Lung-RADS category 2: Benign appearance or behavior. Continue annual screening with noncontrast lo w-dose chest CT in 12 months. Reviewed, dictated and finalized at location A. IMPRESSION: 1. Lung-RADS category 2: Benign appearance or behavior. Continue annual screeni ng with noncontrast low-dose chest CT in 12 months.
--- OUTSIDE RECORDS SUMMARY | 2024-10-02 07:01 | XMS_ITS | Continuity of Care Document ---
Author Organization [facility] Address [address] [place] [address] Phone Care Team Providers Care Senior Nuclear Medicine Technologist Name Role Phone Anurag Chairez MD, MD Unavailable Unavaila ble Allergies, Adverse Reactions, Alerts Substance Reaction Status Criticality Penicillins Active No Information Sulfa (Sulfonamide Antibiotics) Active No Information Procedures Procedure Date MRI lwr extrm joint, w/o contrast Office/outpatient visit,[facility] 2011 X-ray exam knee, 1 or 2 views 2 X-ray exam both knees, standing 012 Advance Directives Directive Yes / No Effective Date File Name No Information Encounters Encounter Description Practice Location Reason(s) For Visit Diagnoses Date Provider Providers Copied on Encounter [facility], [address] [place] [address], [id number], tel:[phone] [facility] No Information 2 Contreras Osborn. [address] [place] [address], [place], [place], [id number] , [place]. tel:[phone] [facility], [address] [place] [address], [id number], [place] tel:[phone] [facility] LOC PRIM OSTEOART-L/LE GCHONDROMALAC IAJOINT EFFUSION-L/LE G 2 [facility]. [address], [place], [place], [id number] , [place]. tel: [phone] Referring Provider: Anurag Chairez MD P, [address], [place], [address] . tel:[phone] Office/outpat ient visit,[facility], [facility], [address], [place], [place], [id number], [place] tel:[phone] [facility] JOINT PAIN-L/LEGTEA R MED MENISC KNEE-CURCHOND ROMALACIA 2 Contreras Osborn. [address], [place], [place], [id number] , [place]. tel: [phone] Family History Family Member Type Diagnosis Age At Onset No Information Payers Payer name Insurance type Covered democrat ID Authortatianaa tijudith(s) [facility] CI [id number] Social History Type Description Quantity Date [...]
--- OUTSIDE RECORDS SUMMARY | 2024-10-02 07:01 | XMS_ITS | Encounter Summary ---
Author Organization [facility] Address [address] [place] [address] Care Team Providers Care It Applications Developer Name Role Phone Jacki Martinez Primary Care Provider Unavaila ble Encounter Details Date Type Department Care Team (Late st Contact Info) Description 09/20/2020 Lab Requisition [facility] [address] [place] [address] Flavio Waite Jr., MD [address] [place] [address] Social History Tobacco Use Types Packs/Day Years Used Date Smoking Tobacco: Never Smokeless Tobacco: Never Alcohol Use Standard Drinks/Week Comments Yes 0 (1 standard drink = 0.6 oz pur e alcohol) socially PHQ-2 Answer Date Recorded PHQ2 TOTAL SCORE 0 08/27/2020 Comments No Sex and Gender Information Value Date Recorded Sex Assigned at Not on file Legal Sex Female 10:54 AM CDT Gender Identity Female 08/27/2020 10:31 AM CDT [...] AM CDT) Case Report Dermatopathology Report Case: [id number] Authorizing Provider: Flavio Waite Jr., MD Collected: 09/17/2020 12:00 AM Ordering Location: [facility] DermPath Lab Received: 09/20/2020 02:43 PM Pathologist: Naomi Kaufman MD Specimens: A) - Skin, left proximal pretibial region B) - Skin, left distal pretibial region 4:17 PM CDT DERMATOPATHOLOGY LABORATORY Final Diagnosis Specimen A. SKIN, left proximal pretibial region: ACTINIC KERATOSIS (L57.0) STASIS DERMATITIS (L30.8) Specimen B. SKIN, left distal pretibial region: ACTINIC KERATOSIS (L57.0) STASIS DERMATITIS (L30.8) 4:17 PM CDT DERMATOPATHOLOGY LABORATORY at 1617 CDT Clinical History A-B: Basal cell carcinoma vs irritated seborrheic keratosis vs Squamous cell carcinoma vs actinic keratosis. 4:17 PM CDT DERMATOPATHOLOGY LABORATORY Gross Description Specimen A: Received is one formalin filled container labeled with the patient's name and designated left proximal pretibial region. The specimen consists of a shave biopsy measuring [id number]. Jar 0. Specimen B: Received is one formalin filled container labeled with the patient's name and designated left distal pretibial region. The specimen consists of a shave biopsy measuring [id number]. Jar 0. 4:17 PM CDT DERMATOPATHOLOGY LABORATORY [...] which are increased in number. 4:17 PM CDT DERMATOPATHOLOGY LABORATORY Disclaimer An external and internal positive and negative controls are appropriate for the histochemical, immunohistochemical and immunofluorescence stain(s) in this case (if any), except where stated explicitly. The performance characteristics of the stain(s) cited in this report were developed and its performance characteristic determined by the Dermatopathology Laboratory at [facility], directed by Dr. Gus Kaufman. These tests need not be, and therefore are not, approved by the [place] Food and Drug Administration. The tests are used for clinical purposes. Billing Codes Specimen Charges Stain Charges 03334 [id number] 1 1 1 4:17 PM CDT DERMATOPATHOLOGY LABORATORY Embedded Images 4:17 PM CDT DERMATOPATHOLOGY LABORATORY Pathology/Cytology TISSUE SPECIMEN FROM SKIN / Unknown 09/17/2020 09/20/2020 2:43 PM CDT Miscellaneous samples (specimen) TISSUE SPECIMEN FROM SKIN / Unknown 09/17/2020 09/20/2020 2:43 PM CDT Flavio Waite Jr., MD LAB - PATHOLOGY/CYTOLOG Y ORDERABLES Final Result DERMATOPATHOLOGY LABORATORY [facility] - Department of Dermatology [facility] Medicine [address] [place] [address], [address] [phone] documented in this encounter Visit Diagnoses Not on filedocumented in this encounter Care Teams It Applications Developer Relationship Specialty Start Date End Date Jacki Martinez Update Information PCP - General 09/20/20 documented as of this encounter
--- OUTSIDE RECORDS SUMMARY | 2024-10-02 07:01 | XMS_ITS | Clinical Summary ---
Author Organization [facility] Address [address] [place] [address] Care Team Providers Care Bailer Operators Supervisor Name Role Phone Jacki Martinez Primary Care Provider Unavaila ble Source Comments [facility],non-owned Affiliates and Associated Physician Practices is amultiple site organization consisting of ambulatory clinics and hospital sitesin [place], [place], [place] and [place]. This disclosure is being madepursuant to the Care Everywhere program and may not contain all information available regarding this patient. Last updated 18.[facility] [employer] Allergies Active Allergy Reactions Criticality Noted Date Comments Penicillins 02/06/2017 Sulfa Drugs 02/06/2017 Medications * Be aware that medications may not be up to date on this document. Alwaysverify current medications with the patient. BuPROPion HCl (WELLBUTRIN XL PO) Active Fexofenadine HCl (YVETTE PO) Active Fluticasone Propionate (FLONASE NA) Active METOPROLOL SUCCINATE PO Active montelukast (SINGULAIR) 10 MG tablet 0 03/25/2018 Active azelastine (ASTELIN) 0.1 % nasal spray [place] 1 (one) spray into each nostril 2 times daily 1 Inhaler 1 08/27/2020 Active Active Problems No known active problems Immunizations Immunization Administration Dates Next Due HEP A VACCINE, [...] 11:25 AM CDT Height 161.3 cm (5' 3.5) 08/27/2020 11:25 AM CD T Body Mass [...] Td or Tdap) 08/21/2021 08/22/2011 COVID-19 VACCINE (1 - 2023- season) 2023 DEPRESSION SCREENING 04/30/2024 INFLUENZA VACCINE (Season Ended) 2024 01/12/2020, 02/12/2019, 03/03/2013, Additional history exists Respiratory Syncytial Virus (RSV) Vaccine Pt: or [...] complete this topic MENINGOCOCCAL (Group B) VACCINE SHARED DECISION-MAKING Aged Out No longer eligible based on patient's age to complete this topic MENINGOCOCCAL GROUPS A/C/Y/W VACCINE Aged Out No longer eligible based on patient's age to complete this topic Insurance ANTHEM ANTHEM ANTH Care Teams Bailer Operators Supervisor Relationship Specialty Start Date End Date Jacki Martinez Update Information PCP - General 09/20/20
== END 2024-10-02 06:57 | disposition home or self-care (01) ==
PROVIDERS: PCP Family Medicine; Visit Provider Nurse Practitioner Family
DX: Z12.2 Encounter for screening for malignant neoplasm of respiratory organs (principal); Z87.891 Personal history of nicotine dependence
CPT/HCPCS: 71271